=== PATIENT | male | born 1960 | race Two or more races ===

== ENCOUNTER → 2018-03-02 | Outpatient (CLI) | payer OTHER | END | disposition home or self-care (01) | LOC: LAB 10:47 | PROVIDERS: ATTEND Preventive Medicine Preventive Medicine/Occupational Environmental Medicine | DX: Z02.1 Encounter for pre-employment examination (principal) | CPT/HCPCS: 36415; 86706; 86735; 86762; 86765; 86787 ==

== ENCOUNTER 2018-06-19 14:19 | Inpatient (IN) | payer BC, OTHER ==
[~2018-06-19] VITALS: Ht 177.8 cm; Wt 74.5 kg
[2018-06-19 15:28] LABS: Anion Gap 5 (5-15); Carbon Dioxide 29 mmol/L (21-32); Chloride 105 mmol/L (98-107); Potassium 4.1 mmol/L (3.5-5.1); Sodium 139 mmol/L (136-145)
[2018-06-19 15:29] LABS: Alanine Aminotransferase 19 U/L (16-61); Alkaline Phosphatase 78 U/L (45-117); Aspartate Aminotransferase 16 U/L (15-37); BUN/Creatinine Ratio 7.9; Bilirubin, Total 0.5 mg/dL (0.2-1.0); Blood Urea Nitrogen 8 mg/dL (7-18); Calcium 9.2 mg/dL (8.5-10.1); GFR African American 98 mL/min; GFR Non-African American 81 mL/min; Glucose 103 mg/dL (74-106)
[2018-06-19 15:49] LABS: Basophils # (auto) 0 uL; Basophils % (auto) 0.2 % (0.0-2.0); Eosinophils # (auto) 0 uL; Eosinophils % (auto) 0.1 % (0.0-7.0); Hemoglobin 16.9 g/dL (13.5-17.5)
[2018-06-19 15:51] LABS: Hematocrit 50.7 % (41.0-53.0); Lymphocytes # (auto) 2.5 uL; Lymphocytes % (auto) 16.4 % (10.0-50.0); Mean Corpuscular Hemoglobin 27.7 pg (28.0-32.0); Mean Corpuscular Hgb Conc. 33.4 g/dL (32.0-36.0); Monocytes % (auto) 6.4 % (0.0-12.0); Neutrophils # (auto) 11.9 uL; Neutrophils % (auto) 76.9 % (37.0-80.0); Platelet Count (auto) 222 10^3/uL (140-450); Red Blood Cells 6.11 10^6/uL (4.5-5.90); Red Cell Distribution Width 13.6 % (11.8-14.3); White Blood Cell 15.5 10^3/uL (4.4-10.8)
[2018-06-19 16:03] LABS: INR 0.98 (0.9-1.15)
[2018-06-19] MEDS ORDERED: ONDANSETRON HCL 4 MG/2 ML VIAL IV PRN (18:30)
[2018-06-19] MEDS ORDERED: ACETAMINOPHEN 500 MG TAB PO PRN (18:30)
[2018-06-19] MEDS ORDERED: NITROGLYCERIN 0.4 MG SL TAB SL PRN (18:30)
[2018-06-19] MEDS ORDERED: HYDROcodone-ACET 5/325MG TAB PO PRN (18:30)
[2018-06-19] MEDS ORDERED: MORPHINE SULF INJ 2 MG/ML SYRINGE 1ML IV PRN ×2 (18:30)
[2018-06-19] MEDS: SODIUM CHLORIDE 0.9% 1,000 ML IV SCH (18:30)
[2018-06-19 20:15] VITALS: BP 149/80
--- NOTE | 2018-06-19 20:15 | NUR ---
Telemetry admit from [facility] admitted to Telemetry unit after SBAR received. Patient oriented to Leslie Galan, primary RN, unit, room, bed, and unit policies regarding patient care and visiting hours. Patient now on continuous telemetry monitoring, tele box 47 and telemetry reading on arrival to unit is NSR 82.. Patient weighed by bedscale and encouraged to call if they need something. All questions and concerns addressed, patient verbalized understanding. Note:
[2018-06-19 22:00] VITALS: BP 142/79
[2018-06-19 23:17] LABS: Urine Bacteria NONE SEEN /hpf (None Seen); Urine Blood Negative /uL (Negative); Urine Specific Gravity 1.009 (1.001-1.035); Urine WBC 1 /hpf (0 - 3)
[2018-06-20] MEDS: SODIUM CHLORIDE 0.9% 1,000 ML IV SCH ×2 (02:31→21:10)
[2018-06-20 05:00] VITALS: BP 110/65
[2018-06-20 05:28] LABS: Basophils # (auto) 0 uL; Basophils % (auto) 0.3 % (0.0-2.0); Eosinophils # (auto) 0.1 uL; Eosinophils % (auto) 0.9 % (0.0-7.0); Hematocrit 46.9 % (41.0-53.0); Hemoglobin 15.8 g/dL (13.5-17.5); Lymphocytes # (auto) 3.4 uL; Mean Corpuscular Hemoglobin 27.7 pg (28.0-32.0); Mean Corpuscular Hgb Conc. 33.6 g/dL (32.0-36.0); Mean Corpuscular Volume 82.3 fL (80.0-100.0); Monocytes # (auto) 1.1 uL; Monocytes % (auto) 9.3 % (0.0-12.0); Neutrophils # (auto) 7.4 uL; Neutrophils % (auto) 61.5 % (37.0-80.0); Nucleated Red Blood Cells % 0.1 %; Platelet Count (auto) 216 10^3/uL (140-450); Red Cell Distribution Width 13.6 % (11.8-14.3); White Blood Cell 12.1 10^3/uL (4.4-10.8)
[2018-06-20 05:58] LABS: Albumin 3.6 g/dL (3.4-5.0); Anion Gap 6 (5-15); Blood Urea Nitrogen 10 mg/dL (7-18); Calcium 8.9 mg/dL (8.5-10.1); Carbon Dioxide 27 mmol/L (21-32); Chloride 107 mmol/L (98-107); Glucose 101 mg/dL (74-106); Potassium 3.7 mmol/L (3.5-5.1); Sodium 140 mmol/L (136-145)
[2018-06-20 06:03] LABS: Alanine Aminotransferase 15 U/L (16-61); Alkaline Phosphatase 68 U/L (45-117); Aspartate Aminotransferase 13 U/L (15-37); Bilirubin, Total 0.7 mg/dL (0.2-1.0); Cholesterol 163 mg/dL (< 200); GFR African American 111 mL/min; GFR Non-African American 92 mL/min; HDL Cholesterol 48 mg/dL (40-59); LDL Cholesterol 110 mg/dL (< 100); Lactate Dehydrogenase 157 U/L (87-241); Total Protein 6.8 g/dL (6.4-8.2); Triglycerides 108 mg/dL (< 150)
--- NOTE | 2018-06-20 08:00 | NUR ---
Opening shift note: Patient is A/O x-4. Patient is laying in bed and states that he feels a lil headache starting but he does not want any tylenol and will let me know when he wants pain medication. Will continue to monitor the patient. Family is at bedside.
[2018-06-20 09:04] VITALS: BP 127/86
[2018-06-20] MEDS: LOSARTAN POTASSIUM 25 MG TAB PO SCH (12:00)
[2018-06-20 12:53] VITALS: BP 132/72
--- NOTE | 2018-06-20 15:54 | NUR ---
Dr. Ibanez in to see patient as primary physician.
[2018-06-20 16:26] VITALS: BP 144/84
[2018-06-20] MEDS: ACETAMINOPHEN 500 MG TAB PO PRN (17:00)
--- NOTE | 2018-06-20 18:40 | NUR ---
Patient states that he does not eat meat. Dietary dept. notified and patient prepared and served another tray.
--- NOTE | 2018-06-20 19:00 | NUR ---
Closing shift note; Patient is A/O x-4 and not exhibiting any pain nor distress at this time. Care endorsed to Femi Prater RN
--- NOTE | 2018-06-20 19:24 | NUR ---
Opening Shift Note Assumed care of patient, awake and alert x 4. No S/S of distress/SOB or pain. Bed is in lowest position and locked. Call light within reach. Board updated. Tele box number matches monitor and leads are in correct placement. Instructed on POC and to call for assist PRN, will continue to monitor for changes Q1hr and PRN.
[2018-06-20 22:00] VITALS: BP 122/76
[2018-06-21] VITALS (7 sets, daily range): BP systolic 87–157; BP diastolic 61–97
[2018-06-21 05:46] LABS: Basophils # (auto) 0 uL; Basophils % (auto) 0.3 % (0.0-2.0); Eosinophils # (auto) 0.1 uL; Hematocrit 49.1 % (41.0-53.0); Hemoglobin 16.5 g/dL (13.5-17.5); Lymphocytes # (auto) 3.1 uL; Lymphocytes % (auto) 28.3 % (10.0-50.0); Mean Corpuscular Hemoglobin 27.7 pg (28.0-32.0); Mean Corpuscular Hgb Conc. 33.5 g/dL (32.0-36.0); Mean Corpuscular Volume 82.4 fL (80.0-100.0); Monocytes # (auto) 1.1 uL; Monocytes % (auto) 10.1 % (0.0-12.0); Neutrophils # (auto) 6.6 uL; Neutrophils % (auto) 60.3 % (37.0-80.0); Nucleated Red Blood Cells % 0.2 %; Platelet Count (auto) 224 10^3/uL (140-450); Red Blood Cells 5.96 10^6/uL (4.5-5.90); Red Cell Distribution Width 13.4 % (11.8-14.3)
--- NOTE | 2018-06-21 08:00 | NUR ---
Opening shift note: Patient A/O x-4, sitting in bed and not stating any pain nor disocomfort at this time. Family is at bedside.
[2018-06-21] MEDS: ACETAMINOPHEN 500 MG TAB PO PRN (09:57)
[2018-06-21] MEDS: LOSARTAN POTASSIUM 25 MG TAB PO SCH (09:57)
[2018-06-21] MEDS ORDERED: SODIUM CHLORIDE 0.9% 1,000 ML IV SCH ×2 (10:00→11:00)
[2018-06-21] MEDS ORDERED: SODIUM CHLORIDE 0.9% 1,000 ML IV ONE (10:00)
--- NOTE | 2018-06-21 14:25 | NUR ---
ORTHOSTATIC B/P: Patient's last set of orthostatic blood pressures are: layin/85; sittin/97; standin/89. Patient A/O and not stating any pain nor discomfort at this time. Family is at bedside.
== END 2018-06-21 14:50 | disposition home or self-care (01) | DRG 312 ==
LOC: ER 14:19 → TELE 18:18 → TELE-CENTR 20:01
PROVIDERS: ADMIT Nurse Practitioner Acute Care; ATTEND Nurse Practitioner Acute Care
DX: R55 Syncope and collapse (principal); D72.829 Elevated white blood cell count, unspecified; I10 Essential (primary) hypertension; Z82.49 Family history of ischemic heart disease and other diseases of the circulatory system; W18.39XA Other fall on same level, initial encounter; Y93.89 Activity, other specified; Y92.89 Other specified places as the place of occurrence of the external cause; Y99.8 Other external cause status
CPT/HCPCS: 36415; 70450; 71046; 80053; 80061; 81001; 82533; 83036; 83615; 83735; 84443; 84484; 85025; 85379; 85610; 85652; 85730; 87040; 87086; 93005; 93306; 93886; 94761; G0378

== ENCOUNTER 2022-06-26 15:29 | Emergency (ER) | payer BC ==
[~2022-06-26] VITALS: Ht 180.3 cm; Wt 72.0 kg
[2022-06-26 15:29] VITALS: BP 150/84
[2022-06-26 16:37] LABS: Basophils # (auto) 0 10 ^3/uL (0-0.2); Basophils % (auto) 0.3 % (0.0-2.0); Eosinophils # (auto) 0 10 ^3/uL (0-0.8); Eosinophils % (auto) 0.2 % (0.0-7.0); Hematocrit 50.1 % (41.0-53.0); Hemoglobin 17.5 g/dL (13.5-17.5); Lymphocytes # (auto) 1.9 10 ^3/uL (0.4-5.4); Lymphocytes % (auto) 20.4 % (10.0-50.0); Mean Corpuscular Volume 82.8 fL (80.0-100.0); Monocytes # (auto) 0.6 10 ^3/uL (0-1.3); Monocytes % (auto) 6.9 % (0.0-12.0); Neutrophils # (auto) 6.8 10 ^3/uL (1.6-8.6); Neutrophils % (auto) 72.2 % (37.0-80.0); Nucleated Red Blood Cells % 0.6 %; Red Blood Cells 6.05 10^6/uL (4.5-5.90); White Blood Cell 9.4 10^3/uL (4.4-10.8)
[2022-06-26 16:57] LABS: Potassium 4.5 mmol/L (3.5-5.1)
[2022-06-26 17:06] LABS: Albumin 4.3 g/dL (3.4-5.0); BUN/Creatinine Ratio 11.8 (10.0-20.0); Bilirubin, Total 0.5 mg/dL (0.2-1.0); Total Protein 8.1 g/dL (6.4-8.2)
== END 2022-06-27 01:18 | disposition left against medical advice (07) ==
LOC: ER 15:29 → EEVIPCON 15:29 → ER 06-27 01:18
DX: R07.89 Other chest pain (principal); R42 Dizziness and giddiness; R51.9 Headache, unspecified; R20.0 Anesthesia of skin; I10 Essential (primary) hypertension
CPT/HCPCS: 36415; 70450; 80053; 84484; 85025; 93005; 93925